=== PATIENT | female | born 2005 | race Caucasian/White ===

== ENCOUNTER 2023-01-27 20:27 | Emergency (ER) | payer SELFPAY ==
[2023-01-27] MEDS ORDERED: Enoxaparin 120 MG/0.8 ML Syringe SUBCUT ONE (22:46)
== END 2023-01-27 23:10 | disposition home or self-care (01) ==
LOC: JD.ED 20:27
DX: O22.23 Superficial thrombophlebitis in pregnancy, third trimester (principal); I80.02 Phlebitis and thrombophlebitis of superficial vessels of left lower extremity; Z3A.29 29 weeks gestation of pregnancy
CPT/HCPCS: 93971-26-LT; 93971-LT; 96372; 99283; J1650

== ENCOUNTER 2023-03-09 05:20 | Observation (INO) | payer SELFPAY ==
[2023-03-09] MEDS ORDERED: Cyclobenzaprine 10 MG Tab PO ONE (05:29)
== END 2023-03-09 08:08 | disposition home or self-care (01) ==
LOC: UNDOADMOB 05:20 → INTOOBSV 05:20 → OBSVTOIN 05:20 → JD.OB 05:20 → JD.MS 08:01
PROVIDERS: ADMIT Obstetrics & Gynecology; ATTEND Obstetrics & Gynecology
DX: O23.593 Infection of other part of genital tract in pregnancy, third trimester (principal); N76.2 Acute vulvitis; O99.891 Other specified diseases and conditions complicating pregnancy; M54.50 Low back pain, unspecified; Z79.899 Other long term (current) drug therapy; Z3A.35 35 weeks gestation of pregnancy
CPT/HCPCS: 59025; A9270